=== PATIENT | male | born 1975 | race Native Hawaiian/Other Pacific Islander ===

== ENCOUNTER 2017-11-06 20:39 | Emergency (ER) | payer OTHER ==
[~2017-11-06] VITALS: Ht 170.2 cm; Wt 74.8 kg
[2017-11-06] MEDS ORDERED: LIDOCAINE 2%-EPI 1:100,000 20 ML VIAL TP ONE (21:30)
[2017-11-06 21:43] LABS: BASOPHILS % (AUTO) 0.4 % (0.0-2.0); EOSINOPHILS # (AUTO) 0.2 K/uL (0.0-0.7); EOSINOPHILS % (AUTO) 1.6 % (0.0-7.0); HEMATOCRIT 27.5 % (36.7-47.1); HEMOGLOBIN 9.6 g/dL (12.5-16.3); LYMPHOCYTES # (AUTO) 2.1 K/uL (20.0-40.0); MEAN CORPUSCULAR HEMOGLOBIN 36.8 uug (23.8-33.4); MEAN CORPUSCULAR HGB CONC 35 g/dL (32.5-36.3); MONOCYTES # (AUTO) 1.3 K/uL (2.0-10.0); MONOCYTES % (AUTO) 10.8 % (0.0-11.0); NEUTROPHILS # (AUTO) 8.1 K/uL (1.8-8.9); NEUTROPHILS % (AUTO) 69.2 % (38.5-71.5); PLATELET COUNT (AUTO) 110 K/uL (152-348); RED BLOOD CELL COUNT(AUTO) 2.62 MIL/uL (4.06-5.63); WHITE BLOOD COUNT (AUTO) 11.7 K/uL (3.6-10.2)
[2017-11-06 21:59] LABS: BILIRUBIN,DIRECT 1.1 mg/dL (0.0-0.2); BILIRUBIN,TOTAL 2.1 mg/dL (0.2-1.0); CREATININE 2.1 mg/dL (0.6-1.3); POTASSIUM 5.3 mmol/L (3.5-5.1); TOTAL PROTEIN, SERUM 6.4 g/dL (6.4-8.2)
[2017-11-06 22:28] VITALS: BP 115/70
== END 2017-11-06 22:29 | disposition home or self-care (01) ==
LOC: ER 20:43
DX: S31.119D Laceration without foreign body of abdominal wall, unspecified quadrant without penetration into peritoneal cavity, subsequent encounter (principal); K70.31 Alcoholic cirrhosis of liver with ascites; X58.XXXD Exposure to other specified factors, subsequent encounter
CPT/HCPCS: 36415; 83690; 85025; 85730; A4663

== ENCOUNTER 2017-11-13 19:51 | Emergency (ER) | payer OTHER ==
[~2017-11-13] VITALS: Ht 170.2 cm; Wt 68.0 kg
[2017-11-13] MEDS ORDERED: LIDOCAINE HCL 1% 20 ML VIAL ONE (20:56)
[2017-11-13] MEDS: LIDOCAINE HCL 1% 20 ML VIAL IJ ONE (20:59)
--- NOTE | 2017-11-13 21:03 | NUR ---
PT IN BED. PT'S VISITOR AT BEDSIDE. MD MOLINA AT BEDSIDE CONDUCTED LAC REPAIR.
--- NOTE | 2017-11-13 21:35 | NUR ---
Patient discharged to home in stable conditon. Written and verbal after care instructions given. Patient verbalizes understanding of instructions. Patient able to ambulate unassisted with steady gait. Patient left with all personal belongings.
[2017-11-13 21:42] VITALS: BP 112/72
== END 2017-11-13 21:35 ==
LOC: ER 19:55
DX: S31.130A Puncture wound of abdominal wall without foreign body, right upper quadrant without penetration into peritoneal cavity, initial encounter (principal); X58.XXXA Exposure to other specified factors, initial encounter; Y93.89 Activity, other specified; Y92.89 Other specified places as the place of occurrence of the external cause; Y99.8 Other external cause status
CPT/HCPCS: A4663; J3490

== ENCOUNTER 2017-11-22 18:48 | Emergency (ER) | payer OTHER ==
[~2017-11-22] VITALS: Ht 170.2 cm; Wt 72.6 kg
[2017-11-22] MEDS ORDERED: MIDO10TA PO (19:05)
[2017-11-22] MEDS ORDERED: RIFA550T PO (19:05)
[2017-11-22] MEDS ORDERED: LACT10SO6 PO (19:05)
[2017-11-22] MEDS ORDERED: FOLI0.8T2 PO (19:05)
[2017-11-22] MEDS ORDERED: PANT40TA4 PO (19:05)
[2017-11-22] MEDS ORDERED: THIA100T13 PO (19:05)
[2017-11-22] MEDS ORDERED: FURO-152 PO (19:05)
[2017-11-22] MEDS ORDERED: SPIR50TA PO (19:05)
--- NOTE | 2017-11-22 19:19 | NUR ---
Patient discharged to home in stable conditon. Written and verbal after care instructions given. Patient verbalizes understanding of instructions.
== END 2017-11-22 19:19 | disposition home or self-care (01) ==
LOC: ER 18:48
DX: Z48.02 Encounter for removal of sutures (principal); Z79.899 Other long term (current) drug therapy
CPT/HCPCS: A4663

== ENCOUNTER 2018-01-01 07:55 | Emergency (ER) | payer MEDICAID, OTHER ==
[~2018-01-01] VITALS: Ht 170.2 cm; Wt 72.3 kg
[~2018-01-01 07:55] MED LIST: FOLI0.8T2 PO; FURO-152 PO; LACT10SO6 PO; MIDO10TA PO; PANT40TA4 PO; RIFA550T PO; SPIR50TA PO; THIA100T13 PO
--- NOTE | 2018-01-01 08:02 | NUR ---
PT IS IN ROOM #2A. DR CARR EVALUATED THE PT.
--- NOTE | 2018-01-01 08:12 | NUR ---
PT WAS D/C TO HOME. D/C INSTRUCTIONS GIVEN TO THE PT.
[2018-01-01 08:13] VITALS: BP 141/75
== END 2018-01-01 08:21 | disposition home or self-care (01) ==
LOC: ER 07:55
DX: S31.133A Puncture wound of abdominal wall without foreign body, right lower quadrant without penetration into peritoneal cavity, initial encounter (principal); X58.XXXA Exposure to other specified factors, initial encounter; Y93.89 Activity, other specified; Y92.89 Other specified places as the place of occurrence of the external cause; Y99.8 Other external cause status; K74.60 Unspecified cirrhosis of liver; Z79.899 Other long term (current) drug therapy
CPT/HCPCS: A4663

== ENCOUNTER 2018-01-04 07:45 | Emergency (ER) | payer MEDICAID, OTHER ==
[~2018-01-04] VITALS: Ht 170.2 cm; Wt 72.1 kg
--- NOTE | 2018-01-04 09:00 | NUR ---
PT CONNECTED TO CULINARY INSTRUCTOR, 12 LEAD EKG DONE, IV INSERTED ON RT FOREARM, BLOOD SAMPLES TAKEN SENT TO LAB.
[2018-01-04 09:08] LABS: BASOPHILS % (AUTO) 0.7 % (0.0-2.0); EOSINOPHILS # (AUTO) 0.3 K/uL (0.0-0.7); EOSINOPHILS % (AUTO) 4.2 % (0.0-7.0); HEMATOCRIT 28.5 % (36.7-47.1); HEMOGLOBIN 9.9 g/dL (12.5-16.3); LYMPHOCYTES # (AUTO) 2.2 K/uL (20.0-40.0); MEAN CORPUSCULAR HEMOGLOBIN 35.2 uug (23.8-33.4); MEAN CORPUSCULAR HGB CONC 35 g/dL (32.5-36.3); MEAN CORPUSCULAR VOLUME 100.8 fL (73.0-96.2); MONOCYTES # (AUTO) 0.7 K/uL (2.0-10.0); MONOCYTES % (AUTO) 10.6 % (0.0-11.0); NEUTROPHILS # (AUTO) 3.4 K/uL (1.8-8.9); NEUTROPHILS % (AUTO) 51.5 % (38.5-71.5); PLATELET COUNT (AUTO) 80 K/uL (152-348); RED BLOOD CELL COUNT(AUTO) 2.82 MIL/uL (4.06-5.63); WHITE BLOOD COUNT (AUTO) 6.6 K/uL (3.6-10.2)
[2018-01-04 09:15] LABS: CREATININE 1.9 mg/dL (0.6-1.3); POTASSIUM 4.3 mmol/L (3.5-5.1)
[2018-01-04 09:21] LABS: BILIRUBIN,DIRECT 0.8 mg/dL (0.0-0.2); BILIRUBIN,TOTAL 2.6 mg/dL (0.2-1.0)
[2018-01-04 09:43] LABS: BASOPHILS % (MANUAL) 1 % (0-2); EOSINOPHILS % (MANUAL) 4 % (0-8); LYMPHOCYTES % (MANUAL) 36 % (20-40); METAMYELOCYTES % 1 % (0-1); MONOCYTES % (MANUAL) 5 % (2-10); NEUTROPHILS % (MANUAL) 53 % (42-75)
--- NOTE | 2018-01-04 10:15 | NUR ---
CONSENT SIGNED FOR ABDOMINAL PARECENTESIS.
[2018-01-04] MEDS ORDERED: ALBUMIN HUMAN 25% 50 ML ONE (10:27)
[2018-01-04] MEDS ORDERED: ALBUMIN HUMAN 25% 50 ML IV ONE (10:30)
--- NOTE | 2018-01-04 10:34 | NUR ---
HUMAN ALBUMIN IV GIVEN VIA RT FOREARM IV LINE, PATIENT READY FOR PARACENTESIS
--- NOTE | 2018-01-04 11:25 | NUR ---
ABOMINAL PARACENTSIS DONE 5.2 LITTERS TAKEN OUT, CULTURE AND ANAYLISIS SENT TO LAB. PATIENT STABLE FOR DISCHARGE IV LINE D/C
== END 2018-01-04 11:29 | disposition home or self-care (01) ==
LOC: ER 07:45
DX: K70.31 Alcoholic cirrhosis of liver with ascites (principal); Z79.899 Other long term (current) drug therapy
CPT/HCPCS: 36415; 49083; 71045; 80048; 80076; 82140; 83986; 84484; 85025; 85730; 87070; 87205; 93005; 96365; 99285; A4663; P9047; 70030-TC

== ENCOUNTER 2018-01-31 10:35 | Inpatient (IN) | payer MEDICAID, OTHER ==
[~2018-01-31] VITALS: Ht 170.2 cm; Wt 72.1 kg
--- NOTE | 2018-01-31 10:56 | NUR ---
PT IS IN ROOM #1B. DR ADHIKARI EVALUATED THE PT.
[2018-01-31] MEDS ORDERED: IV NORMAL SALINE 500 ML BAG IV ONE (11:00)
[2018-01-31 11:18] LABS: BASOPHILS # (AUTO) 0.1 K/uL (0.0-8.0); BASOPHILS % (AUTO) 0.8 % (0.0-2.0); EOSINOPHILS # (AUTO) 0.3 K/uL (0.0-0.7); HEMATOCRIT 29.6 % (36.7-47.1); LYMPHOCYTES # (AUTO) 1.9 K/uL (20.0-40.0); LYMPHOCYTES % (AUTO) 30.2 % (20.5-51.5); MEAN CORPUSCULAR HEMOGLOBIN 34.3 uug (23.8-33.4); MEAN CORPUSCULAR HGB CONC 34 g/dL (32.5-36.3); MONOCYTES # (AUTO) 0.6 K/uL (2.0-10.0); NEUTROPHILS # (AUTO) 3.5 K/uL (1.8-8.9); PLATELET COUNT (AUTO) 86 K/uL (152-348); RED BLOOD CELL COUNT(AUTO) 2.93 MIL/uL (4.06-5.63); WHITE BLOOD COUNT (AUTO) 6.4 K/uL (3.6-10.2)
[2018-01-31 11:24] LABS: CREATININE 1.8 mg/dL (0.6-1.3); POTASSIUM 4.4 mmol/L (3.5-5.1)
[2018-01-31 11:30] LABS: BILIRUBIN,DIRECT 0.5 mg/dL (0.0-0.2); BILIRUBIN,TOTAL 1.3 mg/dL (0.2-1.0); TOTAL PROTEIN, SERUM 5.8 g/dL (6.4-8.2)
--- NOTE | 2018-01-31 12:06 | NUR ---
REPORT GIVEN TO JEAN PIERRE M/S. PT WAS TRANSFERED TO ROOM #220.
[2018-01-31] MEDS ORDERED: ONDANSETRON 4 MG/2 ML VIAL IV PRN (12:15)
[2018-01-31] MEDS ORDERED: HYDROCODONE/APAP 5-325MG TABLET PO PRN (12:15)
[2018-01-31] MEDS ORDERED: ACETAMINOPHEN 325 MG TABLET PO PRN (12:15)
[2018-01-31] MEDS ORDERED: Z GUARD REMEDY PASTE 57 GM TUBE TOP PRN (12:15)
[2018-01-31] MEDS ORDERED: MAGNESIUM HYDROXIDE 30 ML LIQUID UDC PO PRN (12:15)
[2018-01-31] MEDS ORDERED: MORPHINE SULFATE 2 MG/1 ML DISP.SYRIN IV PRN (12:15)
[2018-01-31 12:25] VITALS: BP 93/58
--- NOTE | 2018-01-31 12:35 | NUR ---
PATIENT RECEIVED FROM ER, PATIENT HAS A FLAT AFFECT AND RELUCTANT TO ANSWER MANY QUESTIONS. PATIENT DID HOWEVER REPORT BEING WEAK, AND LOSING 50 LBS OVER THE LAST TWO MONTHS. CONTINUITY OF CARE CONSULTS ORDERED, AND PATIENT ORIENTED TO ROOM.
[2018-01-31] MEDS ORDERED: Medication Not On Formulary EA (Midodrine Hcl 10 MG) PO SCH (13:00)
[2018-01-31] MEDS: LACTULOSE 20 G/30 ML LIQUID UDC PO SCH ×2 (13:14→17:14)
[2018-01-31] MEDS ORDERED: MIDODRINE HCL 5 MG TABLET PO SCH (14:00)
--- NOTE | 2018-01-31 14:00 | NUR ---
PATIENT WAS DISRESPECTFUL TO PHYSICAL THERAPY TO ACCESS PATIENTS FUNCTIONAL STATUS AND REFUSED TO WALK AND STATED THAT SHE CAN WATCH HIM WALK OUT OF HERE WHEN HE IS READY TO GO. PATIENT WAS DEMANDING THAT PARACENTESIS BE DONE TODAY OR THAT HE WILL LEAVE. PATIENT OFFERED THE AMA FORM AFTER CONTACTING THE DOCTOR. PATIENT THEN REFUSED TO LEAVE AMA IT WILL AFFECT HIS TRANSPLANT STATUS. CHARGE NURSE THEN CONTACTED CIVIL ENGINEERING DIRECTOR TO SEE IF ALTERNATE ARRANGEMENTS CAN BE MADE TO HAVE PARACENTESIS TODAY.
[2018-01-31 15:19] VITALS: BP 96/59
--- NOTE | 2018-01-31 16:00 | NUR ---
PARACENTESIS PERFORMED AT BEDSIDE, 6L OF FLUID REMOVED AND TAKEN TO LAB.
[2018-01-31] MEDS ORDERED: LIDOCAINE 1%-EPI 1:100,000 20 ML VIAL TP STA (16:33)
[2018-01-31] MEDS ORDERED: RIFAXIMIN 550 MG TABLET PO SCH (17:00)
--- NOTE | 2018-01-31 19:20 | NUR ---
RECEIVED PT LYING IN BED, WITH HIS MOTHER NATANAEL ON HIS BEDSIDE. PATIENT AOX4. DENIES ANY PAIN OR SOB. IV SITE ALREADY OUT. WAITING TO BE DISCHARGE TODAY.
--- NOTE | 2018-01-31 20:12 | NUR ---
PATIENT REMAINS AOX4. DENIES ANY PAIN OR SOB. O2 SAT AT 98% ON RA. IN NO ACUTE DISTRESS. DISCHARGE TO HOME WITH BELONGINGS AND PAPER WORK. ACCOMPANIED BY HIS MOTHER NATANAEL.
[2018-02-01] MEDS ORDERED: PANTOPRAZOLE SODIUM 40 MG TABLET.DR PO SCH (09:00)
[2018-02-01] MEDS ORDERED: THIAMINE HCL 100 MG TABLET PO SCH (09:00)
[2018-02-01] MEDS ORDERED: FOLIC ACID/VITAMIN B COMP W-C TABLET PO SCH (09:00)
[2018-02-01] MEDS ORDERED: SPIRONOLACTONE 50 MG TABLET PO SCH (09:00)
[2018-02-01] MEDS ORDERED: FUROSEMIDE 20 MG TABLET PO SCH (09:00)
== END 2018-01-31 20:17 | disposition home or self-care (01) | DRG 280 ==
LOC: ER 10:35 → MED 12:06
PROVIDERS: ADMIT Internal Medicine; ATTEND Internal Medicine
PROC: 0W9G3ZZ Drainage of Peritoneal Cavity, Percutaneous Approach (ICD-10-PCS; principal; 2018-01-31)
DX: K70.31 Alcoholic cirrhosis of liver with ascites (principal); K76.7 Hepatorenal syndrome; E43 Unspecified severe protein-calorie malnutrition; K72.90 Hepatic failure, unspecified without coma; K76.6 Portal hypertension; D69.59 Other secondary thrombocytopenia; E88.09 Other disorders of plasma-protein metabolism, not elsewhere classified; D63.8 Anemia in other chronic diseases classified elsewhere; N18.9 Chronic kidney disease, unspecified; Z68.24 Body mass index [BMI] 24.0-24.9, adult
CPT/HCPCS: 36415; 70030-TC; 71045; 83690; 85025; 85610; 88342; 93005; A4663; J3490; J7040

== ENCOUNTER 2018-02-06 18:13 | Emergency (ER) | payer OTHER ==
[~2018-02-06] VITALS: Ht 170.2 cm; Wt 68.0 kg
--- NOTE | 2018-02-06 18:46 | NUR ---
PT IS IN ROOM #1A, WAITING FOR DR BARAJAS EVALUATION.
--- NOTE | 2018-02-06 18:59 | NUR ---
DR BARAJAS EVALUATED THE PT.
--- NOTE | 2018-02-06 19:01 | NUR ---
REPORT GIVEN TO STONER HAND RN.
--- NOTE | 2018-02-06 19:14 | NUR ---
ASSUMED CARE OF PATIENT. PATIENT NOTED WITH SKIN ADHESIVE APPLIED BY ER MD TO SITE PER PATIENT REQUEST. WELL TOLERATED. PATIENT READY FOR D/C.
--- NOTE | 2018-02-06 19:23 | NUR ---
Patient discharged to home in stable conditon. Written and verbal after care instructions given. Patient verbalizes understanding of instructions. Ambulated from ER with stable gait. All belongings with patient. VSS
[2018-02-06 19:24] VITALS: BP 120/71
== END 2018-02-06 19:24 | disposition home or self-care (01) ==
LOC: ER 18:15
DX: S31.119A Laceration without foreign body of abdominal wall, unspecified quadrant without penetration into peritoneal cavity, initial encounter (principal); Z87.19 Personal history of other diseases of the digestive system; Z79.899 Other long term (current) drug therapy; X58.XXXA Exposure to other specified factors, initial encounter; Y93.89 Activity, other specified; Y92.89 Other specified places as the place of occurrence of the external cause; Y99.8 Other external cause status
CPT/HCPCS: A4663

== ENCOUNTER 2018-05-30 06:41 | Emergency (ER) | payer MEDICAID ==
[~2018-05-30] VITALS: Ht 170.2 cm; Wt 72.6 kg
[2018-05-30] MEDS ORDERED: vitamin b-1 PO (07:21)
[2018-05-30] MEDS ORDERED: ESOM40CA PO (07:21)
[2018-05-30] MEDS ORDERED: RIFA550T PO (07:21)
--- NOTE | 2018-05-30 07:21 | NUR ---
Dr Bashir at the bedside for MSE.
[2018-05-30] MEDS ORDERED: MORPHINE SULFATE 2 MG/1 ML DISP.SYRIN IV ONE (07:45)
[2018-05-30] MEDS ORDERED: ONDANSETRON 4 MG/2 ML VIAL IV ONE (07:45)
[2018-05-30] MEDS ORDERED: IV NORMAL SALINE 1000 ML BAG IV ONE (07:45)
[2018-05-30] MEDS ORDERED: ONDANSETRON 4 MG/2 ML VIAL ONE (07:46)
[2018-05-30] MEDS ORDERED: MORPHINE SULFATE 2 MG/1 ML DISP.SYRIN ONE (07:47)
[2018-05-30 07:50] LABS: BASOPHILS % (AUTO) 0.8 % (0.0-2.0); EOSINOPHILS % (AUTO) 0.7 % (0.0-7.0); HEMOGLOBIN 11.7 g/dL (12.5-16.3); LYMPHOCYTES # (AUTO) 0.8 K/uL (20.0-40.0); LYMPHOCYTES % (AUTO) 17.2 % (20.5-51.5); MEAN CORPUSCULAR HEMOGLOBIN 34.7 uug (23.8-33.4); MEAN CORPUSCULAR HGB CONC 35 g/dL (32.5-36.3); MEAN CORPUSCULAR VOLUME 97.9 fL (73.0-96.2); MONOCYTES # (AUTO) 0.5 K/uL (2.0-10.0); MONOCYTES % (AUTO) 9.6 % (0.0-11.0); NEUTROPHILS # (AUTO) 3.5 K/uL (1.8-8.9); NEUTROPHILS % (AUTO) 71.7 % (38.5-71.5); PLATELET COUNT (AUTO) 78 K/uL (152-348); RED BLOOD CELL COUNT(AUTO) 3.37 MIL/uL (4.06-5.63); WHITE BLOOD COUNT (AUTO) 4.9 K/uL (3.6-10.2)
[2018-05-30 07:54] LABS: CREATININE 1.5 mg/dL (0.6-1.3); POTASSIUM 4.1 mmol/L (3.5-5.1)
[2018-05-30 08:00] LABS: BILIRUBIN,DIRECT 0.7 mg/dL (0.0-0.2); BILIRUBIN,TOTAL 1.7 mg/dL (0.2-1.0); TOTAL PROTEIN, SERUM 7.1 g/dL (6.4-8.2)
[2018-05-30 08:05] LABS: LYMPHOCYTES % (MANUAL) 18 % (20-40); MONOCYTES % (MANUAL) 10 % (2-10); NEUTROPHILS % (MANUAL) 72 % (42-75)
[2018-05-30 08:55] LABS: *BILIRUBIN,URIN 1+ (NEGATIVE); *BLOOD, URINE NEGATIVE (NEGATIVE); *CLARITY,URINE CLEAR (CLEAR); *COLOR,URINE YELLOW (YELLOW); *KETONES,URINE 1+ (NEGATIVE); *PROTEIN,URINE NEGATIVE (NEGATIVE); LEUKOCYTE ESTERASE ,URINE NEGATIVE (NEGATIVE); NITRITE, URINE NEGATIVE (NEGATIVE); PH,URINE 5.5 (5.0-8.0); UGLUCOSE NEGATIVE (NEGATIVE)
[2018-05-30 08:56] LABS: BACTERIA,URINE FEW /HPF (NONE SEEN); RBC,URINE NONE SEEN /HPF (0-3); SQUAMOUS EPITHELIAL CELL,UR FEW /HPF (NONE SEEN); WBC,URINE 0-3 /HPF (0-3)
--- NOTE | 2018-05-30 09:22 | NUR ---
U/S tech at the bedside.
--- NOTE | 2018-05-30 09:30 | NUR ---
Pt was informed about upcoming Paracentesis, pt verbalized understanding. Radialogist ETA 30 min for procedure.
--- NOTE | 2018-05-30 10:03 | NUR ---
Radiologist at the bedside for u/s guieded Paracentesis.
--- NOTE | 2018-05-30 10:20 | NUR ---
Paracentesis in progress, pt is tolorating well.
--- NOTE | 2018-05-30 10:48 | NUR ---
IV removed. Catheter intact and site benign. Pressure and 4x4 gauze applied to site. No bleeding noted.
[2018-05-30 10:49] VITALS: BP 101/62
--- NOTE | 2018-05-30 10:52 | NUR ---
Patient discharged to home in stable conditon. Written and verbal after care instructions given. Patient verbalizes understanding of instructions.
== END 2018-05-30 10:52 | disposition home or self-care (01) ==
LOC: ER 06:51
DX: R18.8 Other ascites (principal); N28.9 Disorder of kidney and ureter, unspecified; Z98.890 Other specified postprocedural states
CPT/HCPCS: 36415; 49083; 71045; 80048; 80076; 81001; 83690; 85025; 85730; 96361; 96374; 96375; 99285; J2270; J2405; A4663; J7030

== ENCOUNTER 2018-06-17 17:41 | Emergency (ER) | payer MEDICAID ==
[~2018-06-17] VITALS: Ht 170.2 cm; Wt 68.9 kg
[~2018-06-17 17:41] MED LIST changes: +ESOM40CA PO; -LACT10SO6 PO; -PANT40TA4 PO; -THIA100T13 PO; +vitamin b-1 PO
[2018-06-17] MEDS ORDERED: LIDOCAINE HCL 2% 20 ML VIAL ONE (18:10)
[2018-06-17] MEDS ORDERED: LIDOCAINE HCL 1% 20 ML VIAL IJ ONE (18:15)
[2018-06-17] MEDS ORDERED: NEOMY/BACITRA/POLYMYXIN B OINT UD PACKET TP ONE ×2 (18:29→18:30)
--- NOTE | 2018-06-17 18:34 | NUR ---
Patient discharged to home in stable conditon. Written and verbal after care instructions given. Patient verbalizes understanding of instructions.PT WALKS IN STEADY GAIT. PT WITH SO.
== END 2018-06-17 18:35 | disposition home or self-care (01) ==
LOC: ER 17:44
DX: S31.133A Puncture wound of abdominal wall without foreign body, right lower quadrant without penetration into peritoneal cavity, initial encounter (principal); X58.XXXA Exposure to other specified factors, initial encounter; Y93.89 Activity, other specified; Y92.89 Other specified places as the place of occurrence of the external cause; Y99.8 Other external cause status
CPT/HCPCS: 12020; 99284; J3490; A4663

== ENCOUNTER 2018-06-20 10:26 | Emergency (ER) | payer MEDICAID ==
[~2018-06-20] VITALS: Ht 170.2 cm; Wt 69.9 kg
--- NOTE | 2018-06-20 10:34 | NUR ---
Dr Gonzalez at bedside for MSE.
--- NOTE | 2018-06-20 11:00 | NUR ---
Per pt, he wants to go home ang get treatment another day. Dr. Gonzalez made aware.
--- NOTE | 2018-06-20 11:03 | NUR ---
Patient discharged to home in stable conditon. Written and verbal after care instructions given. Patient verbalizes understanding of instructions.
[2018-06-20 11:04] VITALS: BP 136/93
== END 2018-06-20 11:03 | disposition home or self-care (01) ==
LOC: ER 10:28
DX: R18.8 Other ascites (principal)
CPT/HCPCS: A4663

== ENCOUNTER 2018-06-24 09:06 | Emergency (ER) | payer MEDICAID ==
[~2018-06-24] VITALS: Ht 170.2 cm; Wt 72.6 kg
--- NOTE | 2018-06-24 09:23 | NUR ---
Dr Mcneill at the bedside for MSE.
--- NOTE | 2018-06-24 09:30 | NUR ---
Pt signed consent for ultrasound guided paracentesis, placed in the chart.
--- NOTE | 2018-06-24 09:32 | NUR ---
Dr Mcneill tapped pt on Rt side of abd, pt tolorated well.
[2018-06-24] MEDS ORDERED: LIDOCAINE 1%-EPI 1:100,000 20 ML VIAL TP ONE (10:15)
[2018-06-24 10:23] VITALS: BP 150/87
--- NOTE | 2018-06-24 10:24 | NUR ---
Patient discharged to home in stable conditon. Written and verbal after care instructions given. Patient verbalizes understanding of instructions.
== END 2018-06-24 10:24 | disposition home or self-care (01) ==
LOC: ER 09:06
DX: K70.31 Alcoholic cirrhosis of liver with ascites (principal); Z79.899 Other long term (current) drug therapy
CPT/HCPCS: 49083; 99285; J3490; A4663

== ENCOUNTER 2018-08-01 02:56 | Emergency (ER) | payer MEDICAID ==
[~2018-08-01] VITALS: Ht 170.2 cm; Wt 79.4 kg
--- NOTE | 2018-08-01 03:12 | NUR ---
Dr. Salvador at bedside for MSE
[2018-08-01] MEDS ORDERED: TRAMADOL HCL 50 MG TABLET PO ONE (03:15)
[2018-08-01] MEDS ORDERED: TRAMADOL HCL 50 MG TABLET ONE (03:18)
--- NOTE | 2018-08-01 03:19 | NUR ---
Patient discharged to home in stable conditon. Written and verbal after care instructions given. Patient verbalizes understanding of instructions.
[2018-08-01 03:21] VITALS: BP 148/94
== END 2018-08-01 03:20 | disposition home or self-care (01) ==
LOC: ER 02:58
DX: K70.31 Alcoholic cirrhosis of liver with ascites (principal); Z79.899 Other long term (current) drug therapy
CPT/HCPCS: A4663

== ENCOUNTER 2018-09-17 11:46 | Emergency (ER) | payer MEDICAID ==
[~2018-09-17] VITALS: Ht 172.7 cm; Wt 75.3 kg
--- NOTE | 2018-09-17 12:02 | NUR ---
RICKIE ROSA AT BEDSIDE FOR MSE.
[2018-09-17] MEDS ORDERED: KETOROLAC TROMETHAMINE 30 MG INJ ONE (12:11)
[2018-09-17] MEDS ORDERED: KETOROLAC TROMETHAMINE 30 MG INJ IM ONE (12:15)
--- NOTE | 2018-09-17 12:15 | NUR ---
Patient discharged to home in stable conditon. Written and verbal after care instructions given. Patient verbalizes understanding of instructions. ALL BELONGINGS W/ PT. PT SELF-AMBULATED W/O DIFFICULTY.
[2018-09-17 12:17] VITALS: BP 125/78
== END 2018-09-17 12:18 | disposition home or self-care (01) ==
LOC: ER 11:46
DX: R18.8 Other ascites (principal); Z79.899 Other long term (current) drug therapy
CPT/HCPCS: 96372; 99283; J1885; A4663

== ENCOUNTER 2018-09-27 07:33 | Emergency (ER) | payer MEDICAID ==
[~2018-09-27] VITALS: Ht 172.7 cm; Wt 74.8 kg
--- NOTE | 2018-09-27 07:42 | NUR ---
PT A/OX4, PRESENTS TO THE ER C/O EARACHE AND HEARING LOSS IN R EAR. PT STATES HEARING IN THE R EAR IS MUFFLED AND HE FEELS "VIBRATIONS". VSS. NO DRAINAGE NOTED FROM THE R EAR. VSS. PT DENIES C/P, SOB, N/V/D, DIZZINESS, HEADACHE.
--- NOTE | 2018-09-27 07:47 | NUR ---
RICKIE ROSA AT BEDSIDE FOR MSE.
[2018-09-27 07:59] VITALS: BP 112/77
== END 2018-09-27 08:00 | disposition home or self-care (01) ==
LOC: ER 07:33
DX: H66.91 Otitis media, unspecified, right ear (principal); R05 Cough; R09.81 Nasal congestion; Z79.899 Other long term (current) drug therapy
CPT/HCPCS: A4663

== ENCOUNTER 2018-11-13 16:17 | Emergency (ER) | payer MEDICAID ==
[~2018-11-13] VITALS: Ht 170.2 cm; Wt 70.8 kg
--- NOTE | 2018-11-13 16:35 | NUR ---
PT STATED GREGORIO HE IS NOT TAKING ANY HOME MEDICATION AT PRESENT TIME.
[2018-11-13 17:13] LABS: BASOPHILS # (AUTO) 0.1 K/uL (0.0-8.0); BASOPHILS % (AUTO) 2.4 % (0.0-2.0); EOSINOPHILS % (AUTO) 1.1 % (0.0-7.0); HEMATOCRIT 35.5 % (36.7-47.1); LYMPHOCYTES # (AUTO) 1.7 K/uL (20.0-40.0); LYMPHOCYTES % (AUTO) 37.8 % (20.5-51.5); MEAN CORPUSCULAR HEMOGLOBIN 32.6 uug (23.8-33.4); MEAN CORPUSCULAR HGB CONC 34 g/dL (32.5-36.3); MONOCYTES # (AUTO) 0.7 K/uL (2.0-10.0); MONOCYTES % (AUTO) 14.6 % (0.0-11.0); NEUTROPHILS % (AUTO) 44.1 % (38.5-71.5); PLATELET COUNT (AUTO) 54 K/uL (152-348); WHITE BLOOD COUNT (AUTO) 4.5 K/uL (3.6-10.2)
[2018-11-13 17:15] LABS: CREATININE 1.2 mg/dL (0.6-1.3); POTASSIUM 3.7 mmol/L (3.5-5.1)
[2018-11-13 17:20] LABS: BILIRUBIN,TOTAL 1.1 mg/dL (0.2-1.0)
[2018-11-13 17:29] LABS: ETHANOL 321 MG/DL (0-0)
[2018-11-13 17:31] LABS: ACETAMINOPHEN < 2.0 ug/mL (10-30)
[2018-11-13 17:39] LABS: BAND % (MANUAL) 2 % (0-10); LYMPHOCYTES % (MANUAL) 40 % (20-40); MONOCYTES % (MANUAL) 12 % (2-10); NEUTROPHILS % (MANUAL) 46 % (42-75)
--- NOTE | 2018-11-13 17:45 | NUR ---
CONSENT FOR PARACENTESIS OBTAINED BY DR. MOLINA.
--- NOTE | 2018-11-13 17:46 | NUR ---
US TECH AND ER MD AT BEDSIDE FOR PARACENTESIS.
--- NOTE | 2018-11-13 18:37 | NUR ---
TOTAL OUTPUT S/P PARACENTESIS - 5 L.
--- NOTE | 2018-11-13 18:37 | NUR ---
Patient discharged to home in stable conditon. Written and verbal after care instructions given. Patient verbalizes understanding of instructions. ALL BELONGINGS W/ PT. PT SELF-AMBUALTED W/O DIFFICULTY. NO BLEEDING NOTED FROM PARACENTESIS SITE.
[2018-11-13 18:38] VITALS: BP 140/82
== END 2018-11-13 18:40 | disposition home or self-care (01) ==
LOC: ER 16:19
DX: R18.8 Other ascites (principal); F10.129 Alcohol abuse with intoxication, unspecified; Z91.030 Bee allergy status; Z79.899 Other long term (current) drug therapy
CPT/HCPCS: 36415; 49083 ×2; 80053; 82140; 83986; 85025; 85610; 85730; 87070; 99284; G0480 ×2; G0481; A4663

== ENCOUNTER 2018-12-27 08:46 | Emergency (ER) | payer MEDICAID ==
[~2018-12-27] VITALS: Ht 170.2 cm; Wt 70.3 kg
[2018-12-27] MEDS ORDERED: LIDOCAINE HCL 1% 20 ML VIAL ONE (10:09)
[2018-12-27 10:23] LABS: BASOPHILS # (AUTO) 0.1 K/uL (0.0-8.0); EOSINOPHILS # (AUTO) 0.2 K/uL (0.0-0.7); EOSINOPHILS % (AUTO) 3.7 % (0.0-7.0); HEMATOCRIT 36.2 % (36.7-47.1); HEMOGLOBIN 12.2 g/dL (12.5-16.3); LYMPHOCYTES # (AUTO) 1.2 K/uL (20.0-40.0); LYMPHOCYTES % (AUTO) 25.7 % (20.5-51.5); MEAN CORPUSCULAR HEMOGLOBIN 32.7 uug (23.8-33.4); MEAN CORPUSCULAR HGB CONC 34 g/dL (32.5-36.3); MEAN CORPUSCULAR VOLUME 97.3 fL (73.0-96.2); MONOCYTES # (AUTO) 0.7 K/uL (2.0-10.0); MONOCYTES % (AUTO) 14.3 % (0.0-11.0); NEUTROPHILS # (AUTO) 2.5 K/uL (1.8-8.9); NEUTROPHILS % (AUTO) 53.3 % (38.5-71.5); RED BLOOD CELL COUNT(AUTO) 3.72 MIL/uL (4.06-5.63); WHITE BLOOD COUNT (AUTO) 4.6 K/uL (3.6-10.2)
[2018-12-27 10:24] LABS: POTASSIUM 3.3 mmol/L (3.5-5.1)
[2018-12-27 10:26] LABS: PLATELET COUNT (AUTO) 45 K/uL (152-348)
[2018-12-27 10:29] LABS: BILIRUBIN,DIRECT 0.5 mg/dL (0.0-0.2); BILIRUBIN,TOTAL 0.8 mg/dL (0.2-1.0)
--- NOTE | 2018-12-27 11:14 | NUR ---
Patient is resting comfortably on gurney while watching bedside TV, not in acute distress, pending radiologist & laser beam cutter Arthur@this time, [id number]
[2018-12-27 11:22] LABS: BASOPHILS % (MANUAL) 4 % (0-2); EOSINOPHILS % (MANUAL) 2 % (0-8); LYMPHOCYTES % (MANUAL) 21 % (20-40); MONOCYTES % (MANUAL) 11 % (2-10); NEUTROPHILS % (MANUAL) 62 % (42-75)
--- NOTE | 2018-12-27 12:20 | NUR ---
Paracentesis continues, patient is tolerating the procedure well. Arthur, the coffee break attendant is at bedside.
--- NOTE | 2018-12-27 12:42 | NUR ---
Paracentesis is done. Patient ambulated to bathroom with brisk steady gait, denies any discomfort, for disposition@this time, NAD.
--- NOTE | 2018-12-27 12:45 | NUR ---
Per Arthur, about 5 liters of ascitic fluid was drained. notified.
[2018-12-27] MEDS ORDERED: LIDOCAINE HCL 1% 20 ML VIAL IJ ONE (13:15)
--- NOTE | 2018-12-27 13:20 | NUR ---
Patient discharged to home in stable conditon. Written and verbal after care instructions given. Patient verbalizes understanding of instructions.
== END 2018-12-27 13:29 | disposition home or self-care (01) ==
LOC: ER 08:46
DX: K70.31 Alcoholic cirrhosis of liver with ascites (principal); Z91.030 Bee allergy status; Z79.899 Other long term (current) drug therapy
CPT/HCPCS: 36415; 49083; 80048; 80076; 82140; 83605; 83690; 84484; 85025; 85730; 87040 ×2; 99285; G0480; J3490; 70030-TC; A4663

== ENCOUNTER 2019-01-07 08:43 | Emergency (ER) | payer MEDICAID ==
[~2019-01-07] VITALS: Ht 170.2 cm; Wt 76.7 kg
--- NOTE | 2019-01-07 08:50 | NUR ---
RICKIE ROSA AT BEDSIDE FOR MSE.
[2019-01-07 09:02] VITALS: BP 144/96
== END 2019-01-07 09:03 | disposition home or self-care (01) ==
LOC: ER 08:43
DX: K70.31 Alcoholic cirrhosis of liver with ascites (principal); F10.129 Alcohol abuse with intoxication, unspecified; Z91.030 Bee allergy status; Z79.899 Other long term (current) drug therapy; Y90.9 Presence of alcohol in blood, level not specified
CPT/HCPCS: A4663

== ENCOUNTER 2019-05-01 10:16 | Emergency (ER) | payer MEDICAID, OTHER ==
[~2019-05-01] VITALS: Ht 172.7 cm; Wt 70.3 kg
--- NOTE | 2019-05-01 10:40 | NUR ---
PATIENT WAS SEEN BY MD. CONSENT FOR PARACENTESIS WAS SIGNED.
[2019-05-01] MEDS ORDERED: LIDOCAINE 1%-EPI 1:100,000 20 ML VIAL ONE (10:55)
--- NOTE | 2019-05-01 11:09 | NUR ---
PARACENTESIS IN PROCESS...
--- NOTE | 2019-05-01 11:48 | NUR ---
3300 CC OF FLUID WAS DRAINED. PATIENT TOLERATED IT WELL.
[2019-05-01 11:51] VITALS: BP 117/82
--- NOTE | 2019-05-01 11:51 | NUR ---
DCAND FOLLOW UP INSTRUCTIONS GIVEN AND EXPLAINED TO PATIENT WHO STATES HE UNDERSTANDS ALL INSTRUCTIONS.
== END 2019-05-01 11:52 | disposition home or self-care (01) ==
LOC: ER 10:16
DX: K70.31 Alcoholic cirrhosis of liver with ascites (principal); N18.9 Chronic kidney disease, unspecified; Z91.030 Bee allergy status; Z79.899 Other long term (current) drug therapy
CPT/HCPCS: 49082; 99285; J3490; 49083; A4663

== ENCOUNTER 2019-06-16 07:45 | Emergency (ER) | payer OTHER ==
[~2019-06-16] VITALS: Ht 170.2 cm; Wt 72.6 kg
--- NOTE | 2019-06-16 08:22 | NUR ---
Dr Hemphill at the bedside for MSE.
--- NOTE | 2019-06-16 08:26 | NUR ---
Notified Radialogy Dept RE, Ultrasound guided paracentesis.
--- NOTE | 2019-06-16 08:55 | NUR ---
Patient is resting comfortably in bed with eyes closed, NAD noted.
--- NOTE | 2019-06-16 09:01 | NUR ---
Spoke to U/S nixon Lantigua, he will arrange for Paracentisis.
[2019-06-16 09:08] LABS: HEMATOCRIT 33.1 % (40-50); HEMOGLOBIN 11.1 G/DL (14.0-18.0); LYMPHOCYTES % (AUTO) 21.7 % (20.5-51.5); MEAN CORPUSCULAR HEMOGLOBIN 34.4 UUG (27.0-31.0); MEAN CORPUSCULAR HGB CONC 34 g/dL (32.0-37.0); MEAN CORPUSCULAR VOLUME 102.5 FL (82.0-92.0); MONOCYTES % (AUTO) 15.5 % (0.0-11.0); PLATELET COUNT (AUTO) 88 K/UL (150-450); RED BLOOD CELL COUNT(AUTO) 3.23 MIL/UL (4.7-6.1)
[2019-06-16 09:09] LABS: BASOPHILS # (AUTO) 0.1 K/uL (0.0-8.0); BASOPHILS % (AUTO) 1.8 % (0.0-2.0); EOSINOPHILS # (AUTO) 0.1 K/uL (0.0-0.7); LYMPHOCYTES # (AUTO) 1.1 K/UL (0.8-4.8); MONOCYTES # (AUTO) 0.8 K/UL (0.1-1.30); NEUTROPHILS # (AUTO) 2.9 K/UL (1.8-8.9)
[2019-06-16 09:56] LABS: EOSINOPHILS % (MANUAL) 3 % (0-8); LYMPHOCYTES % (MANUAL) 22 % (20-40); MONOCYTES % (MANUAL) 17 % (2-10); NEUTROPHILS % (MANUAL) 58 % (42-75)
--- NOTE | 2019-06-16 10:40 | NUR ---
Radiologist as well as U/S tech at the bedside for Paracentesis.
--- NOTE | 2019-06-16 11:30 | NUR ---
Per US tech, 4.5 L of fluid removed w/ Paracentisis. Pt states feeling better.
[2019-06-16 11:34] VITALS: BP 121/87
--- NOTE | 2019-06-16 11:34 | NUR ---
IV removed. Catheter intact and site benign. Pressure and 4x4 gauze applied to site. No bleeding noted.
--- NOTE | 2019-06-16 11:35 | NUR ---
Patient discharged to home in stable conditon. Written and verbal after care instructions given. Patient verbalizes understanding of instructions. Pt left ER w/ steady gait accompained by family.
== END 2019-06-16 11:38 | disposition home or self-care (01) ==
LOC: ER 07:45
DX: R18.8 Other ascites (principal); Z91.030 Bee allergy status; Z79.899 Other long term (current) drug therapy
CPT/HCPCS: 36415; 70030-TC; 85025; 85730; A4663